=== PATIENT | female | born 1985 | race Caucasian/White ===

== ENCOUNTER 2022-03-20 21:47 | Emergency (ER) | payer OTHER ==
[2022-03-20] MEDS ORDERED: Lidocaine 1% PF 5 ML VIAL ONE (22:00)
[2022-03-20] MEDS ORDERED: HYDROcodone/Acetaminophen 5/325 mg Tablet ONE (22:14)
[2022-03-20] MEDS ORDERED: Boostrix 0.5 ML (Tdap) VIAL (>/=7 yrs of age) ONE (22:19)
[2022-03-20] MEDS ORDERED: Bacitracin 1 PK ONE (22:45)
== END 2022-03-20 22:56 | disposition home or self-care (01) ==
LOC: MADERS 21:47
DX: S61.211A Laceration without foreign body of left index finger without damage to nail, initial encounter (principal); W25.XXXA Contact with sharp glass, initial encounter; Z23 Encounter for immunization; Z79.899 Other long term (current) drug therapy
CPT/HCPCS: 12041; 90471; 90715

== ENCOUNTER 2022-09-05 01:06 | Emergency (ER) | payer OTHER ==
[2022-09-05] MEDS ORDERED: Dicyclomine 20 MG/2 ML VIAL ONE (01:56)
[2022-09-05] MEDS ORDERED: Ondansetron PF 4 MG/2 ML Vial ONE (01:56)
[2022-09-05] MEDS ORDERED: Promethazine HCl 25 MG/ML VIAL ONE (01:57)
[2022-09-05] MEDS ORDERED: Ketorolac Tromethamine 30 MG/ML VIAL ONE (01:57)
[2022-09-05] MEDS ORDERED: Sodium Chloride 0.9% 1,000 ML ONE (01:57)
[2022-09-05] MEDS ORDERED: Sodium Chloride 0.9% 100 ML ONE (02:00)
[2022-09-05 02:09] LABS: #Eosinphils 0.1 thou/uL (0.0-0.7); #Lymphocytes 1.3 thou/uL (1.20-3.40); #Monocytes 0.7 thou/uL (0.11-0.59); #Neutrophils 3.3 thou/uL (1.40-6.50); %Basophils 0.8 % (0.0-1.0); %Eosinophils 2.3 % (0.0-10.0); %Lymphocytes 23.4 % (21.0-51.0); %Neutrophils 61.5 % (42.0-75.0); Mean Corpuscular HGB CONC 34.3 g/dL (32.0-36.0); Mean Corpuscular Hemoglobin 27.9 pg (27.0-31.0); Mean Corpuscular Volume 81.2 fl (78.0-98.0); Mean Platelet Volume 7.3 fL (7.4-10.4); Platelet Count 339 10x3/uL (130-400); RBC Distribution Width 11.1 % (11.5-14.5); White Blood Cell (WBC) Count 5.4 10x3/uL (4.8-10.8)
[2022-09-05 02:21] LABS: BHCG - Serum Negative (NEGATIVE); Pregs Control Background? CLEAR/WHITE (CLR/WHITE); Pregs Control Bar Appear? YES (CONTROL BAR)
[2022-09-05 02:37] LABS: ALT (SGPT) 34 U/L (8-55); AST (SGOT) 22 U/L (5-34); Albumin 4.4 g/dL (3.5-5.0); Alkaline Phosphatase 50 U/L (40-110); Anion Gap 14 mmol/L (10-20); BUN (Urea Nitrogen) 15 mg/dL (7.0-18.7); Calc. Creatinine Clearance 0 mL/min (70-130); Calcium 9.1 mg/dL (7.8-10.44); Carbon Dioxide 24 mmol/L (22-29); Chloride 103 mmol/L (98-107); Estimated GFR 68; Globulin 3.8 g/dL (2.4-3.5); Glucose 103 mg/dL (70-105); Lipase 50 U/L (8-78); Potassium 3.5 mmol/L (3.5-5.1); Protein, Total 8.2 g/dL (6.0-8.3); Sodium 137 mmol/L (136-145)
[2022-09-05 03:38] LABS: Bilirubin Moderate (Negative); Blood, Urine Negative (Negative); Clarity Clear (Clear); Glucose, Urine (Dipstick) Negative (Negative); Ketone, Urine 40 mg/dL (Negative); Leukocyte Negative (Negative); Nitrite Negative (Negative); Protein, Urine (Dipstick) 100 mg/dL (Neg-Trace); Specific Gravity, Urine 1.032 (1.002-1.036)
[2022-09-05 03:44] LABS: Bacteria/HPF 2+ HPF (None Seen); Mucous/LPF 3+ LPF (<2+); RBC/HPF None Seen HPF (0-3)
== END 2022-09-05 04:49 | disposition home or self-care (01) ==
LOC: MADERS 01:06
DX: R11.2 Nausea with vomiting, unspecified (principal); E86.0 Dehydration; K29.70 Gastritis, unspecified, without bleeding
CPT/HCPCS: 80053; 81003; 81015; 83690; 84703; 85025; 96365; 96372; 96375; J1885; J2405; J2550; J7050